=== PATIENT | female | born 1970 | race Caucasian/White ===

== ENCOUNTER 2016-11-21 17:09 | Emergency (ER) | payer SELFPAY ==
[~2016-11-21] VITALS: Ht 167.6 cm; Wt 55.0 kg
[~2016-11-21 17:09] MED LIST: PRED20 PO; VENTAER INH
[2016-11-21 17:17] VITALS: BP 132/86; PULSE 96; RESP 17; TEMP 97.8; O2SAT 98
--- NOTE | 2016-11-21 17:31 | PD ---
HPI Chief Complaint: Psychiatric Symptoms Time Seen by Provider: 17:22 Travel History International Travel<30 days: No Contact w/Intl Traveler<30days: No Traveled to known affect area: No History of Present Illness HPI The patient is a 46-year-old female who presents to the emergency department via [facility] as a Guillen act. According to the police affidavit the patient made statements to her roommates and other residents that she was going to kill her self. The police report also states that the patient made a superficial laceration to the anterior aspect the left wrist. When the police arrived, the patient states she did not want to kill herself, she was only trying to "gain attention ". The patient denies any history of psychiatric disorders or previous suicide attempts. However, the police report states that several residents state that the patient had pills several days ago and stated that she is going to take them all at once in an attempt to kill herself. The patient denies actual suicidal ideation, homicidal ideation, hallucinations, or delusions. The patient does have a history of illicit drug use, denies any alcohol use. [facility] Past Medical History Narrative Medical History of drug use Respiratory: Yes (COPD) Social History Alcohol Use: No Tobacco Use: Yes Substance Use: Yes Allergies-Medications (Allergen,Severity, Reaction): Coded Allergies: No Known Allergies (Unverified , 11/21/16) Reported Meds & Prescriptions Reported Meds & Active Scripts Active No Active Prescriptions or Reported Medications Review of Systems Except as stated in HPI: all other systems reviewed are Neg General / Constitutional: No: Fever Cardiovascular: No: Chest Pain or Discomfort Respiratory: No: Shortness of Breath Gastrointestinal: No: Nausea, Vomiting, Abdominal Pain Psychiatric: Positive: Suicidal Ideations (according to the police report), Substance Abuse (history of substance abuse, denies any illicit drug use today) , No: Anxiety, Depression, Disorder of Thought, Mood Disorder, Homicidal Ideation Physical Exam Narrative GENERAL: Awake, alert, nontoxic-appearing 46-year-old female who appears her stated age and is in no acute respiratory distress. SKIN: Superficial laceration to the volar aspect the left wrist in a linear fashion, no bleeding noted. HEAD: Atraumatic. Normocephalic. EYES: Pupils equal and round. No scleral icterus. No injection or drainage. ENT: No nasal bleeding or discharge. Mucous membranes pink and moist. NECK: Trachea midline. No JVD. CARDIOVASCULAR: Regular rate and rhythm. No murmur appreciated. RESPIRATORY: No accessory muscle use. Clear to auscultation. Breath sounds equal bilaterally. GASTROINTESTINAL: Abdomen soft, non-tender, nondistended. MUSCULOSKELETAL: No obvious deformities. No clubbing. No cyanosis. No edema. NEUROLOGICAL: Awake and alert. No obvious cranial nerve deficits. Motor grossly within normal limits. Normal speech. Nonfocal. PSYCHIATRIC: Appropriate mood and affect; insight and judgment normal. Data Data Last Documented VS Vital Signs Date Time Temp Pulse Resp B/P Pulse Ox O2 Delivery O2 Flow Rate FiO2 11/21/16 17:20 86 17 11/21/16 17:17 97.8 132/86 98 Orders Complete Blood Count With Diff (11/21/16 17:22) Comprehensive Metabolic Panel (11/21/16 17:22) Ed Urine Pregnancytest Poc (11/21/16 17:22) Psych Screen (11/21/16 17:22) Drug Screen, Random Urine (11/21/16 17:22) Alcohol (Ethanol) (11/21/16 17:22) Salicylates (Aspirin) (11/21/16 17:22) Tylenol (Acetaminophen) (11/21/16 17:22) Labs Laboratory Tests Test 11/21/16 17:30 White Blood Count 5.2 TH/MM3 Red Blood Count 4.38 MIL/MM3 Hemoglobin 14.2 GM/DL Hematocrit 40.9 % Mean Corpuscular Volume 93.3 FL Mean Corpuscular Hemoglobin 32.4 PG Mean Corpuscular Hemoglobin 34.7 % Concent Red Cell Distribution Width 13.7 % Platelet Count 245 TH/MM3 Mean Platelet Volume 8.7 FL Neutrophils (%) (Auto) 51.9 % Lymphocytes (%) (Auto) 35.3 % Monocytes (%) (Auto) 10.1 % Eosinophils (%) (Auto) 2.0 % Basophils (%) (Auto) 0.7 % Neutrophils # (Auto) 2.7 TH/MM3 Lymphocytes # (Auto) 1.8 TH/MM3 Monocytes # (Auto) 0.5 TH/MM3 Eosinophils # (Auto) 0.1 TH/MM3 Basophils # (Auto) 0.0 TH/MM3 CBC Comment DIFF FINAL Differential Comment Sodium Level 138 MEQ/L Potassium Level 3.6 MEQ/L Chloride Level 103 MEQ/L Carbon Dioxide Level 27.8 MEQ/L Anion Gap 7 MEQ/L Blood Urea Nitrogen 8 MG/DL Creatinine 0.60 MG/DL Estimat Glomerular Filtration 109 ML/MIN Rate Random Glucose 70 MG/DL Calcium Level 8.8 MG/DL Total Bilirubin 0.7 MG/DL Aspartate Amino Transf 51 U/L (AST/SGOT) Alanine Aminotransferase 39 U/L (ALT/SGPT) Alkaline Phosphatase 46 U/L Total Protein 8.5 GM/DL Albumin 3.9 GM/DL Salicylates Level LESS THAN 1.7 MG/DL Urine Opiates Screen NEG Acetaminophen Level LESS THAN 2.0 MCG/ML Urine Barbiturates Screen NEG Urine Amphetamines Screen POS Urine Benzodiazepines Screen POS Urine Cocaine Screen POS Urine Cannabinoids Screen NEG Ethyl Alcohol Level LESS THAN 3 MG/DL MDM Medical Decision Making Medical Screen Exam Complete: Yes Emergency Medical Condition: Yes Medical Record Reviewed: Yes Interpretation(s) Laboratory Tests Test 11/21/16 17:30 White Blood Count 5.2 TH/MM3 Red Blood Count 4.38 MIL/MM3 Hemoglobin 14.2 GM/DL Hematocrit 40.9 % Mean Corpuscular Volume 93.3 FL Mean Corpuscular Hemoglobin 32.4 PG Mean Corpuscular Hemoglobin 34.7 % Concent Red Cell Distribution Width 13.7 % Platelet Count 245 TH/MM3 Mean Platelet Volume 8.7 FL Neutrophils (%) (Auto) 51.9 % Lymphocytes (%) (Auto) 35.3 % Monocytes (%) (Auto) 10.1 % Eosinophils (%) (Auto) 2.0 % Basophils (%) (Auto) 0.7 % Neutrophils # (Auto) 2.7 TH/MM3 Lymphocytes # (Auto) 1.8 TH/MM3 Monocytes # (Auto) 0.5 TH/MM3 Eosinophils # (Auto) 0.1 TH/MM3 Basophils # (Auto) 0.0 TH/MM3 CBC Comment DIFF FINAL Differential Comment Sodium Level 138 MEQ/L Potassium Level 3.6 MEQ/L Chloride Level 103 MEQ/L Carbon Dioxide Level 27.8 MEQ/L Anion Gap 7 MEQ/L Blood Urea Nitrogen 8 MG/DL Creatinine 0.60 MG/DL Estimat Glomerular Filtration 109 ML/MIN Rate Random Glucose 70 MG/DL Calcium Level 8.8 MG/DL Total Bilirubin 0.7 MG/DL Aspartate Amino Transf 51 U/L (AST/SGOT) Alanine Aminotransferase 39 U/L (ALT/SGPT) Alkaline Phosphatase 46 U/L Total Protein 8.5 GM/DL Albumin 3.9 GM/DL Salicylates Level LESS THAN 1.7 MG/DL Urine Opiates Screen NEG Acetaminophen Level LESS THAN 2.0 MCG/ML Urine Barbiturates Screen NEG Urine Amphetamines Screen POS Urine Benzodiazepines Screen POS Urine Cocaine Screen POS Urine Cannabinoids Screen NEG Ethyl Alcohol Level LESS THAN 3 MG/DL Differential Diagnosis Differential diagnosis includes substance induced mood disorder, mood disorder NOS, bipolar affective disorder, schizoaffective disorder, suicidal ideation, depressive disorder NOS, personality disorder. Narrative Course Labs were drawn and sent. Psychiatric evaluation was ordered. The patient's tetanus shot was updated. Patient is medically cleared to be evaluated by psychiatry. Disposition as per psych. Diagnosis Primary Impression: Suicidal ideation Additional Impressions: Mood disorder Substance induced mood disorder Scripts No Active Prescriptions or Reported Meds Condition: Stable Michael Wong MD Nov 21, 2016 17:31
[2016-11-21 18:30] LABS: AUTOMATED NEUTROPHIL # 2.7 TH/MM3 (1.8-7.7); BASOPHIL % 0.7 % (0.0-2.0); EOSINOPHIL # 0.1 TH/MM3 (0-0.4); HEMATOCRIT 40.9 % (35.0-46.0); HEMO FLAGS DIFF FINAL; LYMPH % 35.3 % (9.0-44.0); LYMPHOCYTE # 1.8 TH/MM3 (1.0-4.8); MEAN CELL VOLUME 93.3 FL (80.0-100.0); MEAN CORPUSCULAR HEMOGLOBIN 32.4 PG (27.0-34.0); MEAN CORPUSCULAR HGB CONC 34.7 % (32.0-36.0); MONO % 10.1 % (0.0-8.0); NEUT % 51.9 % (16.0-70.0); PLATELET COUNT 245 TH/MM3 (150-450); RED BLOOD COUNT 4.38 MIL/MM3 (4.00-5.30); RED CELL DISTRIBUTION WIDTH 13.7 % (11.6-17.2); WHITE BLOOD COUNT 5.2 TH/MM3 (4.0-11.0)
[2016-11-21 18:37] LABS: AMPHETAMINE, URINE POS (NEG); BARBITURATES, URINE NEG (NEG); COCAINE, URINE POS (NEG)
[2016-11-21 18:47] LABS: ALKALINE PHOSPHATASE 46 U/L (45-117); TOTAL BILIRUBIN ADULT 0.7 MG/DL (0.2-1.0)
[2016-11-21 18:48] LABS: ALT (GPT) 39 U/L (10-53); ANION GAP 7 MEQ/L (5-15); AST (GOT) 51 U/L (15-37); BICARBONATE 27.8 MEQ/L (21.0-32.0); BLOOD UREA NITROGEN 8 MG/DL (7-18); CHLORIDE 103 MEQ/L (98-107); GLOMERULAR FILTRATION RATE 109 ML/MIN (>89); SODIUM (NA) 138 MEQ/L (136-145)
[2016-11-21 18:49] LABS: ACETAMINOPHEN LESS THAN 2.0 MCG/ML (10.0-30.0); POTASSIUM 3.6 MEQ/L (3.5-5.1)
[2016-11-21 19:57] VITALS: BP 108/58; PULSE 101; RESP 18
== END 2016-11-22 02:14 ==
LOC: NEDAMB 17:09 → NEPJ 11-22 02:14
DX: R45.851 Suicidal ideations (principal); F14.94 Cocaine use, unspecified with cocaine-induced mood disorder; S61.512A Laceration without foreign body of left wrist, initial encounter; X78.9XXA Intentional self-harm by unspecified sharp object, initial encounter
CPT/HCPCS: 80053; 80307; 80320; 80329; 84703; 85025; 99285; G0480